=== PATIENT | male | born 2000 ===

== ENCOUNTER 2024-09-03 21:21 | Outpatient (REF) | payer OTHER, SELFPAY | END 2024-09-03 21:22 | disposition home or self-care (01) | LOC: LBN 21:21 | PROVIDERS: Visit Provider Family Medicine | DX: R19.4 Change in bowel habit (principal) | CPT/HCPCS: 83630; 87177 ==

== ENCOUNTER 2024-09-26 16:00 | Outpatient (CLI) | payer OTHER, SELFPAY ==
[2024-09-26 16:51] LABS: ESR 3 mm/hr (0-15)
== END 2024-09-26 16:01 | disposition home or self-care (01) ==
PROVIDERS: Visit Provider Nurse Practitioner Adult Health
DX: C81.18 Nodular sclerosis Hodgkin lymphoma, lymph nodes of multiple sites (principal)
CPT/HCPCS: 36415; 85652

== ENCOUNTER 2024-09-27 13:00 | Outpatient (REF) | payer OTHER, SELFPAY | END 2024-09-27 13:01 | disposition home or self-care (01) | LOC: LBN 13:00 | PROVIDERS: Visit Provider Family Medicine | DX: R19.4 Change in bowel habit (principal) | CPT/HCPCS: 83630; 87177 ==